=== PATIENT | male | born 1990 | race Caucasian/White ===

== ENCOUNTER 2017-04-09 12:29 | Emergency (ER) | payer SELFPAY ==
[~2017-04-09] VITALS: Ht 170.2 cm; Wt 76.0 kg
[2017-04-09 12:53] VITALS: BP 122/98
--- NOTE | 2017-04-09 12:58 | NUR ---
PATIENT TO OF
--- NOTE | 2017-04-09 13:05 | NUR ---
PATIENT PRESENTS TO ED WITH C/O PRODUCTIVE GREEN COUGH X 15 DAYS WITH EPIGASTRIC AND BACK PAIN; HAS BEEN TAKING COUGH MEDICINE;DENIES N/V/D; BREATHING EVEN AND UNLABORED;SKIN IS PINK/WARM/DRY; AAOX4 WITH EVEN AND STEADY GAIT; HR EVEN AND REGULAR; PATIENT STATES PAIN OF 8/10 AT THIS TIME;PATIENT POSITIONED FOR COMFORT;ER MD MADE AWARE OF PT STATUS.
--- NOTE | 2017-04-09 13:26 | NUR ---
DR FAN AT BEDSIDE.
[2017-04-09 13:47] VITALS: BP 118/86
--- NOTE | 2017-04-09 13:47 | NUR ---
Patient discharged with v/s stable. Written and verbal after care instructions given and explained. Patient alert, oriented and verbalized understanding of instructions. Ambulatory with steady gait. All questions addressed prior to discharge. ID band removed. Patient advised to follow up with PMD. Rx of PROMETHAZINE DM given. Patient educated on indication of medication including possible reaction and side effects. Opportunity to ask questions provided and answered.
== END 2017-04-09 13:47 | disposition home or self-care (01) ==
LOC: MED 12:29
DX: B34.9 Viral infection, unspecified (principal)
CPT/HCPCS: 99283